=== PATIENT | female | born 1950 | race Caucasian/White ===

== ENCOUNTER 2022-03-22 22:39 | Emergency (ER) | payer OTHER ==
[~2022-03-22] VITALS: Ht 167.6 cm; Wt 73.0 kg
--- NOTE | 2022-03-22 22:56 | NUR ---
Dr Valdivia at bedside MSE in progress
[2022-03-22] MEDS ORDERED: CEPH500T PO (23:04)
--- NOTE | 2022-03-22 23:19 | NUR ---
Patient discharged to home in stable condition. Written and verbal after care instructions given. Patient verbalizes understanding of instructions. Stressed follow up or return to ER for worsening s/s. Patient out of ER with steady gait, no acute signs of distress, VSS, all belongings taken.
[2022-03-22 23:21] VITALS: BP 118/70
== END 2022-03-22 23:21 | disposition home or self-care (01) ==
LOC: ER 22:39
DX: K11.5 Sialolithiasis (principal); Z85.3 Personal history of malignant neoplasm of breast
CPT/HCPCS: A4663